=== PATIENT | female | born 1950 | race Caucasian/White ===

== ENCOUNTER → 2016-12-18 | Outpatient (CLI) | payer OTHER ==
[~2016-12-18] MED LIST: B COMPLEX1 CA1 PO; CALCIUM1 TAB.CHEW PO; COUMADIN5 MG PO; DISCONTINUED MED; FISH OIL 1,2001 EAC1 PO; FISH OIL 1,21 CAP.EC PO; FLUOXETINE HCL20 M1 PO; GLUCOSAMIN-CHO1 EACH PO; HYDROCHLOROTHIA25 MG PO; HYDROCODON-ACE1 EAC5 PO; MICROZIDE12.5 M1 PO; OSTEO BI-FLEX1 EAC4 PO; PERIDEX480 ML PO; SELFEMRA20 MG PO; VITAMIN D1000 UNI1 PO; VOL-CARE RX TA1 EACH PO; VOLTAREN75 MG PO
--- NOTE | ~2016-12-18 | MY29 ---
[facility] A Service of [facility] RADIOLOGY TEXT RESULTS PATIENT: ASHLY VELASCO LOCATION: [facility] : 54 UNIT #: [id number] AGE: [address]: Cecilio Klein APRN SEX: F ORDER DR: [id number] [facility] [address] [place], [place] [address] [id number] O MR#: [id number] Acc #: [id number] NAME: ASHLY VELASCO : 1950 SEX: F STUDY DATE/TIME: 12/18/2016 13:02 UNIT: [facility] ROOM: STUDY DESCRIPTION: MY SPEEDY SCREENING W/ CAD BILAT Attending Physician: Cecilio Klein A.P.R.N. Referring Physician: Cecilio Klein A.P.R.N. Ordering Physician: Cecilio Klein A.P.R.N. Primary Care Physician: Ephraim Vasquez M.D. MEDICAL IMAGING REPORT This report is preliminary unless electronic signature is present EXAM Digital screening mammogram 12/18/2016 HISTORY 66-year-old woman, no risk elevation. Annual screening. COMPARISON STUDIES Mammograms date to 05/28/2006 with most recent 07/09/2015. FINDINGS Digital imaging of each breast was completed utilizing a two-view examination of each breast in craniocaudal and mediolateral-oblique projections. Review and interpretation of digital mammograms include a second review in conjunction with FDA-approved CAD device. There is a normal parenchymal presentation bilaterally consistent with the patient's age. There are no breast masses imaged and no parenchymal asymmetry is visualized. There are no suspicious microcalcifications and I see no focal architectural disturbance. Breast parenchyma is fatty replaced. IMPRESSION Negative screening digital mammogram. One-year followup recommended. Patients over the age of 40 are entered into a reminder system with target due date for the next mammogram. A result letter will also be sent to the patient. BIRADS: 1 Negative Dictated by... [facility] A Service of [facility] RADIOLOGY TEXT RESULTS PATIENT: ASHLY VELASCO LOCATION: [facility] : 54 UNIT #: [id number] AGE: [address]: Cecilio Klein APRN SEX: F ORDER DR: Cesar Atkinson M.D. THIS IS AN ELECTRONICALLY VERIFIED REPORT Cesar Atkinson M.D. at 12/19/2016 8:10 AM JBB/frank TD: 12/18/2016 19:56 JOB #: [id number] MEDICAL IMAGING REPORT Page 1 of 1 COPY
== END | disposition home or self-care (01) ==
LOC: CWCC 12:43
DX: Z12.31 Encounter for screening mammogram for malignant neoplasm of breast (principal)
CPT/HCPCS: G0202